=== PATIENT | female | born 1945 | race Caucasian/White ===

== ENCOUNTER 2020-04-06 10:48 | Inpatient (IN) ==
[~2020-04-06 10:48] MED LIST: ASPIRIN 325 MG TABLET PO ONE; DEXTROSE 5% NACL 0.45% 1,000 ML IV SCH; DIAZEPAM 5 MG TABLET PO ONE; MAGNESIUM SULF RIDER 2 GM in PREMIX 1 EACH IV PRN; NICOTINE 21 MG/24 HR PATCH TRANSDERM PRN; POTASSIUM CHLORIDE RIDER 10 MEQ in PREMIX 1 EACH IV PRN; diphenhydrAMINE CAP 25 MG CAPSULE PO ONE
[2020-04-06] MEDS ORDERED: HEPARIN/NACL 0.9% 2 UNITS/ML 0 ML IV ONE (12:25)
[2020-04-06] MEDS ORDERED: LIDOCAINE 1% 20 ML VIAL ONE (12:25)
[2020-04-06] MEDS ORDERED: HEPARIN/NACL 0.9% 2 UNITS/ML 1,000 ML IV ONE (12:32)
[2020-04-06 12:47] LABS: Basophils % 0.1 % (0.0-0.8); Hematocrit 40.1 VOL% (35.7-47.0); Hemoglobin 13.4 GM/DL (12.0-16.0); Immature Granulocytes % 0.4 %; Immature Granulocytes Absolute 0.04 #; Lymphocytes # 1.7 10*3/uL (1.4-4.0); Lymphocytes % 14.8 % (21.3-54.2); Mean Corpuscular HGB Conc 33.4 GM/DL (32-36); Mean Corpuscular Volume 96.6 FL (87-102); Mean Platelet Volume 10.2 FL (9.6-12.0); Monocytes % 5.6 % (1.7-12.7); Neutrophils % 79.1 % (38.7-73.9); Platelet Count 240 T/CUMM (130-400); Red Blood Count 4.15 MC/CUMM (3.8-5.5); White Blood Count 11.3 T/CUMM (4-12)
[2020-04-06] MEDS ORDERED: ASPIRIN 325 MG TABLET ONE (12:47)
[2020-04-06] MEDS ORDERED: DIAZEPAM 5 MG TABLET ONE (12:47)
[2020-04-06] MEDS ORDERED: diphenhydrAMINE CAP 25 MG CAPSULE ONE (12:47)
[2020-04-06 12:54] LABS: PT Patient Result 10.3 SECS (9.8-11.9)
[2020-04-06 13:11] LABS: Albumin 3.7 G/DL (3.4-5.0); Bilirubin,Total 0.4 MG/DL (0.2-1.0); Calcium 9.1 MG/DL (8.5-10.1); Osmolality,Calculated 277.7 MOS/KG (273-304); Total Protein 7.1 G/DL (6.4-8.3)
[2020-04-06] MEDS ORDERED: LIDOCAINE 1%/EPI INJ 20 ML VIAL ONE (13:25)
[2020-04-06] MEDS ORDERED: MIDAZOLAM 2 MG/2 ML VIAL ONE (13:31)
[2020-04-06] MEDS ORDERED: fentaNYL 100 MCG/2 ML VIAL ONE (13:31)
[2020-04-06] MEDS ORDERED: NITROGLYCERIN SL 0.4 MG TABLET SL PRN (14:12)
[2020-04-06] MEDS ORDERED: valACYclovir 500 MG TABLET PO PRN (14:12)
[2020-04-06] MEDS ORDERED: DICLOFENAC 1% GEL 100 GM TUBE TOP PRN (14:12)
[2020-04-06] MEDS ORDERED: METHOCARBAMOL 500 MG TABLET PO PRN (14:12)
[2020-04-06] MEDS ORDERED: DEXTROSE 50% 25 GM/50 ML VIAL IV PRN (14:43)
[2020-04-06] MEDS ORDERED: GLUCAGON 1 MG VIAL IM PRN (14:43)
[2020-04-06] MEDS ORDERED: CHLORHEXIDINE 4% SOLN 118 ML BOTTLE TOP SCH (15:00)
[2020-04-06] MEDS ORDERED: MEPERIDINE 25 MG/1 ML VIAL IV ONE (15:05)
[2020-04-06] MEDS: SODIUM CHLORIDE 0.9% 1,000 ML IV SCH (15:14)
[2020-04-06] MEDS ORDERED: hydrALAZINE 20 MG/1 ML VIAL IV PRN (17:00)
[2020-04-06] MEDS ORDERED: diphenhydrAMINE CAP 25 MG CAPSULE PO PRN (17:00)
[2020-04-06] MEDS ORDERED: SIMETHICONE CHEW 125 MG TABLET PO PRN (17:00)
[2020-04-06] MEDS ORDERED: PROMETHAZINE 25 MG TABLET PO PRN (17:00)
[2020-04-06] MEDS ORDERED: ONDANSETRON 4 MG/2 ML VIAL IV PRN (17:00)
[2020-04-06] MEDS ORDERED: MORPHINE 4 MG/1 ML VIAL IV PRN (17:00)
[2020-04-06] MEDS ORDERED: ACETAMINOPHEN 325 MG TABLET PO PRN (17:00)
[2020-04-06] MEDS ORDERED: ALBUTEROL 2.5 MG/3 ML NEB RESP TX SCH (19:00)
[2020-04-06] MEDS ORDERED: guaiFENesin/DM ER 600-30 MG TABLET PO PRN (21:00)
[2020-04-06] MEDS ORDERED: ERGOCALCIFEROL 50,000 UNIT CAPSULE PO SCH (21:00)
[2020-04-06] MEDS ORDERED: DOCUSATE SODIUM 100 MG CAPSULE PO PRN (21:00)
[2020-04-06] MEDS ORDERED: ZALEPLON 5 MG CAPSULE PO PRN (21:00)
[2020-04-06] MEDS ORDERED: ESTRADIOL 0.01% VAG CREAM 42.5 GM TUBE VAG SCH (21:00)
[2020-04-06] MEDS ORDERED: CHLORHEXIDINE 0.12% ORAL RINSE 60 ML BOTTLE SWISH/SPIT SCH (21:00)
[2020-04-06] MEDS ORDERED: GABAPENTIN 100 MG CAPSULE PO PRN (21:00)
[2020-04-06] MEDS: MAGNESIUM GLUCONATE 500 MG TABLET PO SCH (21:57)
[2020-04-06] MEDS: NORTRIPTYLINE 25 MG CAPSULE PO SCH (21:57)
[2020-04-06] MEDS: VENLAFAXINE 37.5 MG TABLET PO SCH (21:58)
[2020-04-06] MEDS: VENLAFAXINE 75 MG TABLET PO SCH (21:58)
[2020-04-06] MEDS: METHENAMINE HIPPURATE 1 GM TABLET PO SCH (21:59)
[2020-04-06] MEDS: ALUMINUM/MAGNES/SIMETH MAX STR 30 ML UDCUP PO SCH (21:59)
[2020-04-06] MEDS: PROPRANOLOL 10 MG TABLET PO SCH (22:00)
[2020-04-06] MEDS: ALBUTEROL 0.4 MG/ML 30 ML/BOTTLE PO SCH (22:04)
[2020-04-07 05:08] LABS: ABG Base Excess 3.5 MMOL/L (-2.5-2.5); ABG HCO3 27.4 MMOL/L (20-26); ABG Oxygen Saturation 94.4 % (95-100); ABG PCO2 47.1 MM HG (35-48); ABG PH 7.399 (7.35-7.45); ABG TCO2 25.6 MMOL/L (23-27)
[2020-04-07 05:09] LABS: Allen Test Positive; Pt O2 Delivery Device Room Air
[2020-04-07 06:56] LABS: Basophils % 0.4 % (0.0-0.8); Eosinophils # 0.1 10*3/uL (0.0-0.87); Eosinophils % 0.8 % (0.00-10.9); Hematocrit 38.6 VOL% (35.7-47.0); Hemoglobin 12.6 GM/DL (12.0-16.0); Immature Granulocytes % 0.3 %; Immature Granulocytes Absolute 0.02 #; Lymphocytes % 38.4 % (21.3-54.2); Mean Corpuscular HGB Conc 32.6 GM/DL (32-36); Mean Corpuscular Volume 98.7 FL (87-102); Mean Platelet Volume 10.4 FL (9.6-12.0); Monocytes % 10.6 % (1.7-12.7); Neutrophils % 49.5 % (38.7-73.9); Platelet Count 205 T/CUMM (130-400); Red Blood Count 3.91 MC/CUMM (3.8-5.5); Red Cell Distribution Width 12.3 % (9.3-17.3); White Blood Count 7.9 T/CUMM (4-12)
[2020-04-07 07:23] LABS: Albumin 3.5 G/DL (3.4-5.0); Bilirubin,Total 0.4 MG/DL (0.2-1.0); Calcium 8.8 MG/DL (8.5-10.1); Osmolality,Calculated 283.1 MOS/KG (273-304); Total Protein 6.4 G/DL (6.4-8.3)
[2020-04-07] MEDS ORDERED: BISACODYL 5 MG TABLET PO PRN (09:00)
[2020-04-07] MEDS ORDERED: ALBUTEROL SULFATE INH SCH (09:00)
[2020-04-07] MEDS: ALBUTEROL 0.4 MG/ML 30 ML/BOTTLE PO SCH ×2 (09:56→21:40)
[2020-04-07] MEDS: LIDOCAINE 5% PATCH TRANSDERM SCH (09:57)
[2020-04-07] MEDS: OMEGA 3 ACID ETHYL ESTERS 1 GM CAPSULE PO SCH (09:58)
[2020-04-07] MEDS: ATORVASTATIN 40 MG TABLET PO SCH (09:58)
[2020-04-07] MEDS: atenoloL 25 MG TABLET PO SCH (09:58)
[2020-04-07] MEDS: PANTOPRAZOLE 40 MG TABLET PO SCH (09:59)
[2020-04-07] MEDS: FEXOFENADINE 180 MG TABLET PO SCH (09:59)
[2020-04-07] MEDS: EZETIMIBE 10 MG TABLET PO SCH (09:59)
[2020-04-07] MEDS: lisinopriL 20 MG TABLET PO SCH (09:59)
[2020-04-07] MEDS: MONTELUKAST 10 MG TABLET PO SCH (09:59)
[2020-04-07] MEDS: METHENAMINE HIPPURATE 1 GM TABLET PO SCH ×2 (09:59→21:39)
[2020-04-07] MEDS: ASPIRIN EC 81 MG TABLET PO SCH (09:59)
[2020-04-07] MEDS: COENZYME Q10 100 MG CAPSULE PO SCH (09:59)
[2020-04-07] MEDS: CHLORHEXIDINE 4% SOLN 118 ML BOTTLE TOP SCH ×2 (18:10→21:43)
[2020-04-07] MEDS: VENLAFAXINE 37.5 MG TABLET PO SCH (21:38)
[2020-04-07] MEDS: VENLAFAXINE 75 MG TABLET PO SCH (21:38)
[2020-04-07] MEDS: MAGNESIUM GLUCONATE 500 MG TABLET PO SCH (21:39)
[2020-04-07] MEDS: NORTRIPTYLINE 25 MG CAPSULE PO SCH (21:39)
[2020-04-07] MEDS: PROPRANOLOL 10 MG TABLET PO SCH (21:40)
[2020-04-07] MEDS: CHLORHEXIDINE 0.12% ORAL RINSE 60 ML BOTTLE SWISH/SPIT SCH (21:42)
[2020-04-07] MEDS: ALUMINUM/MAGNES/SIMETH MAX STR 30 ML UDCUP PO SCH (21:45)
[2020-04-08] MEDS: CHLORHEXIDINE 4% SOLN 118 ML BOTTLE TOP SCH ×2 (04:13→11:58)
[2020-04-08] MEDS ORDERED: VANCOMYCIN 500 MG VIAL ONE (04:23)
[2020-04-08] MEDS ORDERED: PAPAVERINE 60 MG/2 ML VIAL ONE (04:23)
[2020-04-08] MEDS ORDERED: VANCOMYCIN 1,000 MG VIAL ONE (04:23)
[2020-04-08] MEDS ORDERED: CEFUROXIME INJ 1,500 MG in SYRINGE 1 EACH IV ONE (05:00)
[2020-04-08] MEDS ORDERED: AMINOCAPROIC ACID 5,000 MG/20 ML VIAL ONE (05:52)
[2020-04-08] MEDS ORDERED: MIDAZOLAM 10 MG/2 ML VIAL ONE (05:52)
[2020-04-08] MEDS ORDERED: SUFentanil 250 MCG/5 ML AMP ONE (05:52)
[2020-04-08] MEDS ORDERED: CALCIUM CHLORIDE 1,000 MG/10 ML VIAL IV ONE (05:52)
[2020-04-08] MEDS ORDERED: VECURONIUM 10 MG VIAL IV ONE (05:52)
[2020-04-08] MEDS ORDERED: MINERAL OIL/PETROLATUM OPH OINT 3.5 GM TUBE ONE (05:52)
[2020-04-08] MEDS ORDERED: diphenhydrAMINE 50 MG/1 ML VIAL ONE (05:53)
[2020-04-08] MEDS ORDERED: FAMOTIDINE 20 MG/2 ML VIAL IV ONE (05:53)
[2020-04-08] MEDS ORDERED: SODIUM BICARBONATE 50 MEQ/50 ML VIAL IV ONE ×2 (07:13→10:41)
[2020-04-08] MEDS ORDERED: POTASSIUM CHLORIDE RIDER 100 ML IV ONE (07:13)
[2020-04-08] MEDS ORDERED: NITROPRUSSIDE 50 MG/2 ML VIAL ONE (07:13)
[2020-04-08] MEDS ORDERED: CALCIUM CHLORIDE 1,000 MG/10 ML SYRINGE IV ONE (07:13)
[2020-04-08] MEDS ORDERED: PHENYLEPHRINE DRIP 40 MG/250 ML PREMIX IV ONE (07:13)
[2020-04-08 07:45] LABS: ABG Base Excess 0.6 MMOL/L (-2.5-2.5); ABG Oxygen Saturation 99.9 % (95-100); ABG PH 7.386 (7.35-7.45); Glucose Heart Surgery 105 MG/DL (74-106); Hematocrit Heart Surgery 35.6 PERCENT (37-47); Hemoglobin Heart Surgery 11.5 G/DL (12.0-16.0); Ionized Calcium Arterial 1.18 MMOL/L (1.21-1.46); PH Patient Temp Arterial 7.386; Patient Temperature 37 CELCIUS; Sodium Heart/CVR 140 MMOL/L (135-145)
[2020-04-08 08:11] LABS: Apearance,Urine CLEAR (Clear); Bacteria,Urine Occasional /HPF (Few); Bilirubin,Urine Negative (Negative); Blood, Urine Negative (Negative); Glucose,Urine (UA) Negative (Negative); Hyaline Casts,Urine 1 /LPF (0-3); Ketones,Urine Negative (Negative); Mucus,Urine Occasional /LPF (Occasional); Nitrite,Urine Negative (Negative); Protein,Urine Negative; RBC,Urine 4 /HPF (0-4); Squamous Epithelial Cell,Urine Occasional /HPF (0-10); Urine Color Yellow (Yellow); Urine Specific Gravity 1.021 (1.001-1.035); Urine Urobilinogen < 2.0 EU/DL (0.2-1.0); WBC,Urine 5 /HPF (0-6)
[2020-04-08] MEDS ORDERED: ALBUMIN 5% 12.5 GM/250 ML VIAL IV ONE (08:13)
[2020-04-08 09:12] LABS: Hematocrit Heart Surgery 24.4 PERCENT (37-47); Hemoglobin Heart Surgery 7.8 G/DL (12.0-16.0); PCO2 Patient Temp Venous 36.2 MM HG; PH Patient Temp Venous 7.473; PO2 Patient Temp Venous 38.6 MM HG; Potassium Heart/CVR 5.3 MMOL/L (3.5-5.1); VBG Base Excess 3.1 MEQ/L (0-4); VBG Oxygen Saturation 83.4 %; VBG PCO2 39.9 MMHG (41-51); VBG PH 7.444; VBG PO2 44.4 MMHG (17-40)
[2020-04-08 09:36] LABS: Hematocrit Heart Surgery 27.1 PERCENT (37-47); Hemoglobin Heart Surgery 8.7 G/DL (12.0-16.0); PCO2 Patient Temp Venous 32.1 MM HG; PH Patient Temp Venous 7.504; Potassium Heart/CVR 4.9 MMOL/L (3.5-5.1); VBG Base Excess 2.5 MEQ/L (0-4); VBG HCO3 26.5 MEQ/L (24-28); VBG Oxygen Saturation 87.7 %; VBG PCO2 37.1 MMHG (41-51); VBG PH 7.459
[2020-04-08 10:05] LABS: Hematocrit Heart Surgery 28.6 PERCENT (37-47); Hemoglobin Heart Surgery 9.2 G/DL (12.0-16.0); PCO2 Patient Temp Venous 34.7 MM HG; PH Patient Temp Venous 7.487; PO2 Patient Temp Venous 38.3 MM HG; Potassium Heart/CVR 4.9 MMOL/L (3.5-5.1); VBG HCO3 26.8 MEQ/L (24-28); VBG Oxygen Saturation 78.5 %; VBG PCO2 34.7 MMHG (41-51); VBG PH 7.487; VBG PO2 38.3 MMHG (17-40)
[2020-04-08 10:32] LABS: ABG Base Excess -0.6 MMOL/L (-2.5-2.5); ABG HCO3 23.8 MMOL/L (20-26); ABG Oxygen Saturation 98.7 % (95-100); ABG PCO2 37.8 MM HG (35-48); ABG PH 7.417 (7.35-7.45); ABG PO2 326.4 MM HG (80-95); Glucose Heart Surgery 175 MG/DL (74-106); Hemoglobin Heart Surgery 8.8 G/DL (12.0-16.0); Ionized Calcium Arterial 1.22 MMOL/L (1.21-1.46); PCO2 Patient Temp Arterial 37.8 MMHG; PH Patient Temp Arterial 7.417; PO2 Patient Temp Arterial 326.4 MM HG; Patient Temperature 37 CELCIUS; Potassium Heart/CVR 3.4 MMOL/L (3.5-5.1); Sodium Heart/CVR 134 MMOL/L (135-145)
[2020-04-08] MEDS ORDERED: MANNITOL 100 GM/500 ML BAG IV ONE (10:40)
[2020-04-08] MEDS ORDERED: LIDOCAINE 2% 5 ML VIAL ONE (10:40)
[2020-04-08] MEDS ORDERED: DEXTROSE 5% KCL 20 MEQ 20 MEQ/1,000 ML BAG IV ONE (10:40)
[2020-04-08] MEDS ORDERED: PROTAMINE SULFATE 50 MG/5 ML VIAL IV ONE ×3 (10:41→11:36)
[2020-04-08] MEDS ORDERED: MAGNESIUM SULFATE 5 GM/10 ML VIAL IV ONE (10:41)
[2020-04-08] MEDS ORDERED: PROTAMINE SULFATE 250 MG/25 ML VIAL IV ONE (10:41)
[2020-04-08] MEDS ORDERED: HEPARIN 10,000 UNIT/10 ML VIAL ONE (10:41)
[2020-04-08] MEDS ORDERED: FUROSEMIDE 20 MG/2 ML VIAL ONE (10:41)
[2020-04-08] MEDS ORDERED: methylPREDNISolone SOD SUC 1,000 MG/8 ML VIAL ONE (10:41)
[2020-04-08] MEDS ORDERED: ALBUMIN 25% 25 GM/100 ML VIAL IV ONE (10:41)
[2020-04-08] MEDS ORDERED: AMIODARONE 450 MG/9 ML VIAL IV ONE (11:18)
[2020-04-08] MEDS ORDERED: MAGNESIUM SULF RIDER 2 GM in PREMIX 1 EACH IV PRN (11:36)
[2020-04-08] MEDS ORDERED: LACTATED RINGERS 250 ML IV PRN (11:36)
[2020-04-08] MEDS ORDERED: DEXTROSE 10% 250 ML BAG IV PRN ×2 (11:36)
[2020-04-08] MEDS ORDERED: INSULIN REGULAR 100 UNIT/ML IV ONE (11:36)
[2020-04-08] MEDS ORDERED: AMIODARONE INJ 450 MG in DEXTROSE 5% 241 ML IV SCH (11:36)
[2020-04-08] MEDS ORDERED: NITROPRUSSIDE 100 MG in DEXTROSE 5% 250 ML IV PRN (11:36)
[2020-04-08] MEDS ORDERED: ALBUMIN 5% 12.5 GM in PREMIX 1 EACH IV PRN (11:36)
[2020-04-08] MEDS ORDERED: INSULIN REGULAR 100 UNIT/ML IV PRN (11:36)
[2020-04-08] MEDS ORDERED: ACETAMINOPHEN 650 MG SUPP RECTAL PRN (11:36)
[2020-04-08] MEDS ORDERED: MORPHINE 4 MG/1 ML VIAL IV PRN (11:36)
[2020-04-08] MEDS ORDERED: MAGNESIUM SULF RIDER 4 GM in PREMIX 1 EACH IV PRN (11:36)
[2020-04-08] MEDS ORDERED: ONDANSETRON 4 MG/2 ML VIAL IV PRN (11:36)
[2020-04-08] MEDS ORDERED: CALCIUM CHLORIDE 1,000 MG/10 ML SYRINGE IV PRN (11:36)
[2020-04-08] MEDS ORDERED: MIDAZOLAM 10 MG/2 ML VIAL IV PRN (11:36)
[2020-04-08] MEDS ORDERED: INSULIN REGULAR DRIP 100 ML IV SCH (11:36)
[2020-04-08] MEDS ORDERED: MORPHINE 10 MG/1 ML VIAL IV PRN (11:36)
[2020-04-08] MEDS ORDERED: VECURONIUM 10 MG VIAL IV PRN ×2 (11:36)
[2020-04-08] MEDS ORDERED: PHENYLEPHRINE DRIP 40 MG/250 ML PREMIX IV PRN (11:36)
[2020-04-08] MEDS ORDERED: CHLORHEXIDINE 4% SOLN 118 ML BOTTLE TOP PRN (11:36)
[2020-04-08] MEDS ORDERED: MIDAZOLAM 2 MG/2 ML VIAL IV PRN (11:36)
[2020-04-08] MEDS ORDERED: SODIUM CHLORIDE 0.45% 1,000 ML IV SCH ×2 (11:36)
[2020-04-08] MEDS ORDERED: HEPARIN/NACL 0.9% 2 UNITS/ML 500 ML IV ONE (11:46)
[2020-04-08] MEDS ORDERED: ePHEDrine 50 MG/ML VIAL ONE (11:46)
[2020-04-08] MEDS ORDERED: SEVOFLURANE 1 UNIT/15 MINUTE INH ONE (11:46)
[2020-04-08] MEDS ORDERED: AMIODARONE 150 MG/3 ML VIAL ONE (11:46)
[2020-04-08] MEDS ORDERED: SODIUM CHLORIDE 0.9% 1,000 ML IV ONE (11:47)
[2020-04-08] MEDS ORDERED: SODIUM CHLORIDE 0.9% 300 ML IV ONE (11:47)
[2020-04-08] MEDS ORDERED: ETOMIDATE 40 MG/20 ML VIAL IV ONE (11:47)
[2020-04-08] MEDS ORDERED: SODIUM CHLORIDE 0.9% 250 ML IV ONE (11:47)
[2020-04-08] MEDS ORDERED: PHENYLEPHRINE 10 MG/1 ML VIAL IV ONE (11:53)
[2020-04-08 11:54] LABS: ABG Base Excess 1.5 MMOL/L (-2.5-2.5); ABG HCO3 25.8 MMOL/L (20-26); ABG Oxygen Saturation 96.2 % (95-100); ABG PCO2 43.9 MM HG (35-48); ABG PH 7.392 (7.35-7.45); ABG PO2 77.2 MM HG (80-95); ABG TCO2 24.7 MMOL/L (23-27); Glucose Heart Surgery 150 MG/DL (74-106); Hemoglobin Heart Surgery 8.7 G/DL (12.0-16.0); Potassium Heart/CVR 3.6 MMOL/L (3.5-5.1)
[2020-04-08 11:58] LABS: Basophils % 0.2 % (0.0-0.8); Eosinophils # 0.1 10*3/uL (0.0-0.87); Eosinophils % 0.5 % (0.00-10.9); Hematocrit 26.3 VOL% (35.7-47.0); Hemoglobin 8.6 GM/DL (12.0-16.0); Immature Granulocytes % 0.9 %; Immature Granulocytes Absolute 0.12 #; Lymphocytes # 1.4 10*3/uL (1.4-4.0); Lymphocytes % 11.2 % (21.3-54.2); Mean Corpuscular HGB Conc 32.7 GM/DL (32-36); Mean Corpuscular Volume 99.6 FL (87-102); Mean Platelet Volume 10.5 FL (9.6-12.0); Monocytes % 4.2 % (1.7-12.7); Platelet Count 171 T/CUMM (130-400); Red Blood Count 2.64 MC/CUMM (3.8-5.5); White Blood Count 12.8 T/CUMM (4-12)
[2020-04-08] MEDS: POTASSIUM CHLORIDE RIDER 20 MEQ in PREMIX 1 EACH IV PRN ×5 (11:59→22:28)
[2020-04-08 12:09] LABS: INR 1.3; PT Patient Result 13.4 SECS (9.8-11.9); Partial Thromboplastin Time 27.6 SECS (23.9-33.8)
[2020-04-08 12:20] LABS: Bilirubin,Total 0.8 MG/DL (0.2-1.0); Calcium 9.9 MG/DL (8.5-10.1); Osmolality,Calculated 283.3 MOS/KG (273-304); Total Protein 5.5 G/DL (6.4-8.3)
[2020-04-08 12:28] LABS: CKMB % 3.7 %
[2020-04-08 12:30] LABS: Troponin I 2.16 NG/ML (0.00-0.045)
[2020-04-08] MEDS: POTASSIUM CHLORIDE RIDER 10 MEQ in PREMIX 1 EACH IV PRN ×2 (12:37→14:14)
[2020-04-08] MEDS: atenoloL 25 MG TABLET PO SCH (13:23)
[2020-04-08] MEDS: EZETIMIBE 10 MG TABLET PO SCH (13:23)
[2020-04-08] MEDS: ATORVASTATIN 40 MG TABLET PO SCH (13:24)
[2020-04-08] MEDS: PANTOPRAZOLE 40 MG TABLET PO SCH (13:24)
[2020-04-08] MEDS: MONTELUKAST 10 MG TABLET PO SCH (13:24)
[2020-04-08] MEDS: OMEGA 3 ACID ETHYL ESTERS 1 GM CAPSULE PO SCH (13:24)
[2020-04-08] MEDS: lisinopriL 20 MG TABLET PO SCH (13:24)
[2020-04-08] MEDS: CHLORHEXIDINE 0.12% ORAL RINSE 60 ML BOTTLE SWISH/SPIT SCH (13:24)
[2020-04-08] MEDS: ALBUTEROL 0.4 MG/ML 30 ML/BOTTLE PO SCH (13:24)
[2020-04-08] MEDS: COENZYME Q10 100 MG CAPSULE PO SCH (13:25)
[2020-04-08] MEDS: FEXOFENADINE 180 MG TABLET PO SCH (13:25)
[2020-04-08] MEDS: METHENAMINE HIPPURATE 1 GM TABLET PO SCH (13:25)
[2020-04-08] MEDS: LIDOCAINE 5% PATCH TRANSDERM SCH (13:25)
[2020-04-08] MEDS: ASPIRIN EC 81 MG TABLET PO SCH (13:25)
[2020-04-08] MEDS: SODIUM CHLORIDE 0.9% 1,000 ML IV SCH (13:26)
[2020-04-08 14:05] LABS: ABG Base Excess 0.8 MMOL/L (-2.5-2.5); ABG HCO3 25.1 MMOL/L (20-26); ABG Oxygen Saturation 97.1 % (95-100); ABG PCO2 40.7 MM HG (35-48); ABG PH 7.405 (7.35-7.45); ABG PO2 84.3 MM HG (80-95); ABG TCO2 22.9 MMOL/L (23-27); Glucose Heart Surgery 171 MG/DL (74-106); Hematocrit Heart Surgery 33.7 PERCENT (37-47); Hemoglobin Heart Surgery 10.9 G/DL (12.0-16.0); Potassium Heart/CVR 3.9 MMOL/L (3.5-5.1)
[2020-04-08 16:00] LABS: ABG Base Excess 0.8 MMOL/L (-2.5-2.5); ABG HCO3 25.1 MMOL/L (20-26); ABG Oxygen Saturation 96.8 % (95-100); ABG PCO2 38.1 MM HG (35-48); ABG PH 7.425 (7.35-7.45); ABG PO2 81.7 MM HG (80-95); ABG TCO2 22.4 MMOL/L (23-27); Glucose Heart Surgery 204 MG/DL (74-106); Hematocrit Heart Surgery 33.6 PERCENT (37-47); Hemoglobin Heart Surgery 10.9 G/DL (12.0-16.0); Potassium Heart/CVR 4.4 MMOL/L (3.5-5.1)
[2020-04-08] MEDS: AMIODARONE INJ 450 MG in DEXTROSE 5% 241 ML IV SCH ×2 (17:32→20:30)
[2020-04-08 18:14] LABS: ABG Base Excess 0.1 MMOL/L (-2.5-2.5); ABG HCO3 24.5 MMOL/L (20-26); ABG Oxygen Saturation 95.5 % (95-100); ABG PCO2 50.4 MM HG (35-48); ABG PH 7.331 (7.35-7.45); ABG PO2 80.3 MM HG (80-95); ABG TCO2 24.2 MMOL/L (23-27); Glucose Heart Surgery 212 MG/DL (74-106); Hematocrit Heart Surgery 33.6 PERCENT (37-47); Hemoglobin Heart Surgery 10.9 G/DL (12.0-16.0); Potassium Heart/CVR 5.1 MMOL/L (3.5-5.1)
[2020-04-08] MEDS ORDERED: FUROSEMIDE 40 MG/4 ML VIAL IV PRN (18:40)
[2020-04-08 19:19] LABS: ABG Base Excess -0.1 MMOL/L (-2.5-2.5); ABG HCO3 24.3 MMOL/L (20-26); ABG Oxygen Saturation 94.6 % (95-100); ABG PCO2 40.5 MM HG (35-48); ABG PH 7.394 (7.35-7.45); ABG PO2 71.4 MM HG (80-95); ABG TCO2 22.3 MMOL/L (23-27); Glucose Heart Surgery 204 MG/DL (74-106); Hematocrit Heart Surgery 33.7 PERCENT (37-47); Hemoglobin Heart Surgery 10.9 G/DL (12.0-16.0); Potassium Heart/CVR 4.8 MMOL/L (3.5-5.1)
[2020-04-08] MEDS ORDERED: FUROSEMIDE 40 MG/4 ML VIAL IV ONE (19:43)
[2020-04-08 19:47] LABS: CKMB % 3.5 %
[2020-04-08 19:48] LABS: Troponin I 2.26 NG/ML (0.00-0.045)
[2020-04-08 20:48] LABS: ABG Base Excess 0.6 MMOL/L (-2.5-2.5); ABG HCO3 24.9 MMOL/L (20-26); ABG Oxygen Saturation 96.2 % (95-100); ABG PCO2 35.2 MM HG (35-48); ABG PH 7.447 (7.35-7.45); ABG PO2 76.8 MM HG (80-95); ABG TCO2 21.6 MMOL/L (23-27); Glucose Heart Surgery 189 MG/DL (74-106); Hemoglobin Heart Surgery 11.3 G/DL (12.0-16.0); Potassium Heart/CVR 4.4 MMOL/L (3.5-5.1)
[2020-04-08 22:06] LABS: ABG Base Excess 1.5 MMOL/L (-2.5-2.5); ABG HCO3 25.7 MMOL/L (20-26); ABG Oxygen Saturation 96.3 % (95-100); ABG PCO2 33.7 MM HG (35-48); ABG PH 7.472 (7.35-7.45); ABG PO2 73.2 MM HG (80-95); ABG TCO2 21.9 MMOL/L (23-27); Glucose Heart Surgery 174 MG/DL (74-106); Hematocrit Heart Surgery 35.1 PERCENT (37-47); Hemoglobin Heart Surgery 11.4 G/DL (12.0-16.0); Potassium Heart/CVR 4.4 MMOL/L (3.5-5.1)
[2020-04-09 00:01] LABS: ABG Base Excess 1.8 MMOL/L (-2.5-2.5); ABG Oxygen Saturation 97.2 % (95-100); ABG PCO2 32.6 MM HG (35-48); ABG PH 7.487 (7.35-7.45); ABG PO2 79.9 MM HG (80-95); ABG TCO2 21.9 MMOL/L (23-27); Glucose Heart Surgery 143 MG/DL (74-106); Hematocrit Heart Surgery 34.9 PERCENT (37-47); Hemoglobin Heart Surgery 11.3 G/DL (12.0-16.0); Potassium Heart/CVR 4.4 MMOL/L (3.5-5.1)
[2020-04-09] MEDS: POTASSIUM CHLORIDE RIDER 20 MEQ in PREMIX 1 EACH IV PRN ×2 (00:10→04:15)
[2020-04-09 00:49] LABS: ABG HCO3 26.2 MMOL/L (20-26); ABG Oxygen Saturation 98.2 % (95-100); ABG PCO2 37.5 MM HG (35-48); ABG PH 7.447 (7.35-7.45); ABG PO2 95.6 MM HG (80-95); ABG TCO2 23.2 MMOL/L (23-27); Glucose Heart Surgery 135 MG/DL (74-106); Hematocrit Heart Surgery 34.4 PERCENT (37-47); Hemoglobin Heart Surgery 11.2 G/DL (12.0-16.0); Potassium Heart/CVR 4.9 MMOL/L (3.5-5.1)
[2020-04-09] MEDS: CHLORHEXIDINE 0.12% ORAL RINSE 60 ML BOTTLE SWISH/SPIT SCH ×3 (01:21→21:04)
[2020-04-09 03:50] LABS: ABG Base Excess 3.1 MMOL/L (-2.5-2.5); ABG HCO3 27.2 MMOL/L (20-26); ABG Oxygen Saturation 97.6 % (95-100); ABG PCO2 39.2 MM HG (35-48); ABG PO2 88.5 MM HG (80-95); ABG TCO2 24.2 MMOL/L (23-27); Glucose Heart Surgery 120 MG/DL (74-106); Hematocrit Heart Surgery 34.7 PERCENT (37-47); Hemoglobin Heart Surgery 11.3 G/DL (12.0-16.0); Potassium Heart/CVR 4.3 MMOL/L (3.5-5.1)
[2020-04-09 04:07] LABS: Basophils % 0.1 % (0.0-0.8); Hematocrit 32.4 VOL% (35.7-47.0); Hemoglobin 11.2 GM/DL (12.0-16.0); Immature Granulocytes % 0.4 %; Immature Granulocytes Absolute 0.06 #; Lymphocytes # 0.9 10*3/uL (1.4-4.0); Lymphocytes % 6.2 % (21.3-54.2); Mean Corpuscular HGB Conc 34.6 GM/DL (32-36); Mean Corpuscular Volume 92.3 FL (87-102); Monocytes % 4.1 % (1.7-12.7); Neutrophils % 89.2 % (38.7-73.9); Platelet Count 206 T/CUMM (130-400); Red Blood Count 3.51 MC/CUMM (3.8-5.5); Red Cell Distribution Width 13.2 % (9.3-17.3); White Blood Count 14.3 T/CUMM (4-12)
[2020-04-09 04:29] LABS: Albumin 3.5 G/DL (3.4-5.0); Bilirubin,Direct 0.17 MG/DL (0.0-0.20); Bilirubin,Total 0.6 MG/DL (0.2-1.0); Calcium 9.2 MG/DL (8.5-10.1); Osmolality,Calculated 279.5 MOS/KG (273-304); Total Protein 6.3 G/DL (6.4-8.3)
[2020-04-09 04:30] LABS: CKMB % 3.2 %
[2020-04-09 04:31] LABS: Troponin I 1.41 NG/ML (0.00-0.045)
[2020-04-09 05:22] LABS: ABG Base Excess 3.2 MMOL/L (-2.5-2.5); ABG HCO3 27.2 MMOL/L (20-26); ABG Oxygen Saturation 96.4 % (95-100); ABG PCO2 39.1 MM HG (35-48); ABG PH 7.451 (7.35-7.45); ABG PO2 78.2 MM HG (80-95); ABG TCO2 24.3 MMOL/L (23-27); Glucose Heart Surgery 130 MG/DL (74-106); Hematocrit Heart Surgery 34.8 PERCENT (37-47); Hemoglobin Heart Surgery 11.3 G/DL (12.0-16.0); Potassium Heart/CVR 4.6 MMOL/L (3.5-5.1)
[2020-04-09] MEDS: POTASSIUM CHLORIDE RIDER 10 MEQ in PREMIX 1 EACH IV PRN (06:14)
[2020-04-09 06:28] LABS: ABG Base Excess 3.8 MMOL/L (-2.5-2.5); ABG HCO3 27.8 MMOL/L (20-26); ABG Oxygen Saturation 98.5 % (95-100); ABG PCO2 41.4 MM HG (35-48); ABG PH 7.442 (7.35-7.45); ABG TCO2 25.3 MMOL/L (23-27); Glucose Heart Surgery 141 MG/DL (74-106); Hematocrit Heart Surgery 33.9 PERCENT (37-47); Potassium Heart/CVR 4.8 MMOL/L (3.5-5.1)
[2020-04-09 07:03] LABS: ABG Base Excess 3.9 MMOL/L (-2.5-2.5); ABG HCO3 27.9 MMOL/L (20-26); ABG Oxygen Saturation 98.3 % (95-100); ABG PCO2 39.6 MM HG (35-48); ABG PH 7.457 (7.35-7.45); Glucose Heart Surgery 143 MG/DL (74-106); Hematocrit Heart Surgery 33.8 PERCENT (37-47); Potassium Heart/CVR 4.6 MMOL/L (3.5-5.1)
[2020-04-09] MEDS ORDERED: INSULIN REGULAR 100 UNIT/ML SUBCUT SCH (08:00)
[2020-04-09] MEDS ORDERED: hydrALAZINE 20 MG/1 ML VIAL IV PRN (09:24)
[2020-04-09] MEDS ORDERED: valACYclovir 500 MG TABLET PO PRN (09:24)
[2020-04-09] MEDS ORDERED: DICLOFENAC 1% GEL 100 GM TUBE TOP PRN (09:24)
[2020-04-09] MEDS ORDERED: guaiFENesin/DM ER 600-30 MG TABLET PO PRN (09:24)
[2020-04-09] MEDS ORDERED: GABAPENTIN 100 MG CAPSULE PO PRN (09:24)
[2020-04-09] MEDS ORDERED: ZALEPLON 5 MG CAPSULE PO PRN (09:47)
[2020-04-09] MEDS ORDERED: MAGNESIUM SULF RIDER 4 GM in PREMIX 1 EACH IV PRN (09:47)
[2020-04-09] MEDS ORDERED: GLUCAGON 1 MG VIAL IM PRN ×2 (09:47)
[2020-04-09] MEDS ORDERED: MAGNESIUM SULF RIDER 2 GM in PREMIX 1 EACH IV PRN (09:47)
[2020-04-09] MEDS ORDERED: DEXTROSE 50% 25 GM/50 ML VIAL IV PRN ×2 (09:47)
[2020-04-09] MEDS ORDERED: ACETAMINOPHEN 325 MG TABLET PO PRN (09:47)
[2020-04-09] MEDS ORDERED: ONDANSETRON 4 MG/2 ML VIAL IV PRN (09:47)
[2020-04-09] MEDS ORDERED: MORPHINE 4 MG/1 ML VIAL IV PRN (09:47)
[2020-04-09] MEDS ORDERED: SODIUM CHLOR 0.45% KCL 20 MEQ 20 MEQ/1,000 ML BAG IV SCH (10:00)
[2020-04-09] MEDS: AMIODARONE INJ 450 MG in DEXTROSE 5% 241 ML IV SCH (10:05)
[2020-04-09] MEDS: LIDOCAINE 5% PATCH TRANSDERM SCH (10:29)
[2020-04-09] MEDS: LEVOFLOXACIN 500 MG TABLET PO SCH (10:29)
[2020-04-09] MEDS: METHOCARBAMOL 500 MG TABLET PO PRN (11:51)
[2020-04-09] MEDS: oxyCODONE/ACETAMINOPHEN 5-325 MG TABLET PO PRN ×2 (11:51→21:06)
[2020-04-09] MEDS: KETOROLAC 30 MG/1 ML VIAL IV PRN (14:12)
[2020-04-09] MEDS: ALBUTEROL 2.5 MG/3 ML NEB RESP TX SCH (20:23)
[2020-04-09] MEDS: NORTRIPTYLINE 25 MG CAPSULE PO SCH (21:03)
[2020-04-09] MEDS: METHENAMINE HIPPURATE 1 GM TABLET PO SCH (21:03)
[2020-04-09] MEDS: MAGNESIUM GLUCONATE 500 MG TABLET PO SCH (21:03)
[2020-04-09] MEDS: ALUMINUM/MAGNES/SIMETH MAX STR 30 ML UDCUP PO PRN (21:08)
[2020-04-09] MEDS: VENLAFAXINE 75 MG TABLET PO SCH (21:10)
[2020-04-09] MEDS: MAGNESIUM HYDROXIDE SUSP 30 ML UDCUP PO PRN (21:48)
[2020-04-10] MEDS ORDERED: FUROSEMIDE 40 MG/4 ML VIAL IV ONE (06:00)
[2020-04-10 06:51] LABS: Alanine Aminotransferase 37 U/L (13-56); Albumin 2.9 G/DL (3.4-5.0); Alkaline Phosphatase 93 U/L (45-117); Aspartate Amino Transferase 30 U/L (0-37); Bilirubin,Indirect 0.7 MG/DL (0.0-1.0); Blood Urea Nitrogen 29 MG/DL (7-18); Calcium 8.7 MG/DL (8.5-10.1); Estimated Glom Filtration Rate 66 ML/MIN; Glucose 111 MG/DL (74-106)
[2020-04-10 06:53] LABS: Troponin I 0.632 NG/ML (0.00-0.045)
[2020-04-10 06:58] LABS: Basophils % 0.1 % (0.0-0.8); Hematocrit 29.6 VOL% (35.7-47.0); Hemoglobin 9.7 GM/DL (12.0-16.0); Immature Granulocytes % 0.6 %; Immature Granulocytes Absolute 0.09 #; Lymphocytes # 1.7 10*3/uL (1.4-4.0); Lymphocytes % 11.6 % (21.3-54.2); Mean Corpuscular HGB Conc 32.8 GM/DL (32-36); Mean Corpuscular Volume 98.3 FL (87-102); Mean Platelet Volume 11.1 FL (9.6-12.0); Monocytes % 9.4 % (1.7-12.7); Neutrophils % 78.3 % (38.7-73.9); Platelet Count 177 T/CUMM (130-400); Red Blood Count 3.01 MC/CUMM (3.8-5.5); White Blood Count 14.7 T/CUMM (4-12)
[2020-04-10] MEDS: ALBUTEROL 2.5 MG/3 ML NEB RESP TX SCH ×2 (07:20→19:05)
[2020-04-10] MEDS: FERROUS SULFATE 325 MG TABLET PO SCH (09:40)
[2020-04-10] MEDS: ASPIRIN EC 81 MG TABLET PO SCH (09:40)
[2020-04-10] MEDS: LEVOFLOXACIN 500 MG TABLET PO SCH (09:40)
[2020-04-10] MEDS: PANTOPRAZOLE 40 MG TABLET PO SCH (09:40)
[2020-04-10] MEDS: ATORVASTATIN 40 MG TABLET PO SCH (09:41)
[2020-04-10] MEDS: COENZYME Q10 100 MG CAPSULE PO SCH (09:41)
[2020-04-10] MEDS: EZETIMIBE 10 MG TABLET PO SCH (09:41)
[2020-04-10] MEDS: FEXOFENADINE 180 MG TABLET PO SCH (09:41)
[2020-04-10] MEDS: OMEGA 3 ACID ETHYL ESTERS 1 GM CAPSULE PO SCH (09:42)
[2020-04-10] MEDS: atenoloL 25 MG TABLET PO SCH (09:42)
[2020-04-10] MEDS: METHENAMINE HIPPURATE 1 GM TABLET PO SCH ×2 (09:42→21:05)
[2020-04-10] MEDS: lisinopriL 20 MG TABLET PO SCH (09:43)
[2020-04-10] MEDS: POTASSIUM CHLORIDE 20 MEQ TABLET PO PRN (09:43)
[2020-04-10] MEDS: DOCUSATE SODIUM 100 MG CAPSULE PO SCH (09:43)
[2020-04-10] MEDS: MONTELUKAST 10 MG TABLET PO SCH (09:43)
[2020-04-10] MEDS: LIDOCAINE 5% PATCH TRANSDERM SCH (09:47)
[2020-04-10] MEDS ORDERED: AMIODARONE INJ 150 MG in DEXTROSE 5% 100 ML IV ONE (12:26)
[2020-04-10] MEDS ORDERED: DILTIAZEM 50 MG/10 ML VIAL IV ONE (12:28)
[2020-04-10] MEDS ORDERED: DILTIAZEM 25 MG/5 ML VIAL IV ONE (12:32)
[2020-04-10] MEDS ORDERED: AMIODARONE 150 MG/3 ML VIAL ONE (12:32)
[2020-04-10] MEDS ORDERED: AMIODARONE 450 MG/9 ML VIAL IV ONE (12:32)
[2020-04-10] MEDS ORDERED: AMIODARONE INJ 450 MG in DEXTROSE 5% 241 ML IV SCH (12:45)
[2020-04-10] MEDS: CHLORHEXIDINE 0.12% ORAL RINSE 60 ML BOTTLE SWISH/SPIT SCH ×2 (14:35→21:05)
[2020-04-10] MEDS: dilTIAZem Drip 125 MG/125 ML PREMIX IV SCH ×2 (14:42→22:33)
[2020-04-10] MEDS: AMIODARONE INJ 450 MG in DEXTROSE 5% 241 ML IV SCH ×2 (18:45→22:37)
[2020-04-10] MEDS: VENLAFAXINE 75 MG TABLET PO SCH (21:04)
[2020-04-10] MEDS: NORTRIPTYLINE 25 MG CAPSULE PO SCH (21:05)
[2020-04-10] MEDS: MAGNESIUM GLUCONATE 500 MG TABLET PO SCH (21:05)
[2020-04-10] MEDS: KETOROLAC 30 MG/1 ML VIAL IV PRN (21:06)
[2020-04-10] MEDS: ALUMINUM/MAGNES/SIMETH MAX STR 30 ML UDCUP PO PRN (21:10)
[2020-04-10] MEDS: MAGNESIUM HYDROXIDE SUSP 30 ML UDCUP PO PRN (21:10)
[2020-04-11 06:42] LABS: Basophils % 0.1 % (0.0-0.8); Eosinophils # 0.1 10*3/uL (0.0-0.87); Eosinophils % 1.1 % (0.00-10.9); Hematocrit 28.7 VOL% (35.7-47.0); Hemoglobin 9.3 GM/DL (12.0-16.0); Immature Granulocytes % 0.7 %; Immature Granulocytes Absolute 0.07 #; Lymphocytes # 1.8 10*3/uL (1.4-4.0); Lymphocytes % 17.8 % (21.3-54.2); Mean Corpuscular HGB Conc 32.4 GM/DL (32-36); Mean Corpuscular Volume 99.7 FL (87-102); Mean Platelet Volume 10.9 FL (9.6-12.0); Monocytes % 12.9 % (1.7-12.7); Neutrophils % 67.4 % (38.7-73.9); Platelet Count 166 T/CUMM (130-400); Red Blood Count 2.88 MC/CUMM (3.8-5.5); Red Cell Distribution Width 12.8 % (9.3-17.3)
[2020-04-11 07:04] LABS: Alanine Aminotransferase 28 U/L (13-56); Albumin 2.6 G/DL (3.4-5.0); Alkaline Phosphatase 89 U/L (45-117); Aspartate Amino Transferase 21 U/L (0-37); Bilirubin,Indirect 0.6 MG/DL (0.0-1.0); Blood Urea Nitrogen 29 MG/DL (7-18); Calcium 8.7 MG/DL (8.5-10.1); Estimated Glom Filtration Rate 74 ML/MIN; Glucose 120 MG/DL (74-106); Osmolality,Calculated 276.1 MOS/KG (273-304); Total Protein 5.9 G/DL (6.4-8.3)
[2020-04-11 07:10] LABS: Troponin I 0.258 NG/ML (0.00-0.045)
[2020-04-11] MEDS: ALBUTEROL 2.5 MG/3 ML NEB RESP TX SCH ×2 (07:35→19:25)
[2020-04-11] MEDS: MAGNESIUM HYDROXIDE SUSP 30 ML UDCUP PO PRN (09:12)
[2020-04-11] MEDS: COENZYME Q10 100 MG CAPSULE PO SCH (09:13)
[2020-04-11] MEDS: LIDOCAINE 5% PATCH TRANSDERM SCH (09:13)
[2020-04-11] MEDS: FEXOFENADINE 180 MG TABLET PO SCH (09:13)
[2020-04-11] MEDS: PANTOPRAZOLE 40 MG TABLET PO SCH (09:14)
[2020-04-11] MEDS: DOCUSATE SODIUM 100 MG CAPSULE PO SCH (09:14)
[2020-04-11] MEDS: POTASSIUM CHLORIDE 20 MEQ TABLET PO PRN ×2 (09:14→10:33)
[2020-04-11] MEDS: OMEGA 3 ACID ETHYL ESTERS 1 GM CAPSULE PO SCH (09:14)
[2020-04-11] MEDS: EZETIMIBE 10 MG TABLET PO SCH (09:14)
[2020-04-11] MEDS: ATORVASTATIN 40 MG TABLET PO SCH (09:14)
[2020-04-11] MEDS: AMPICILLIN 500 MG CAPSULE PO SCH ×4 (09:14→20:50)
[2020-04-11] MEDS: FERROUS SULFATE 325 MG TABLET PO SCH (09:15)
[2020-04-11] MEDS: MONTELUKAST 10 MG TABLET PO SCH (09:15)
[2020-04-11] MEDS: AMIODARONE 200 MG TABLET PO SCH ×2 (09:15→20:50)
[2020-04-11] MEDS: ASPIRIN EC 81 MG TABLET PO SCH (09:15)
[2020-04-11] MEDS: METHENAMINE HIPPURATE 1 GM TABLET PO SCH ×2 (09:16→20:48)
[2020-04-11] MEDS: atenoloL 25 MG TABLET PO SCH (09:16)
[2020-04-11] MEDS: CHLORHEXIDINE 0.12% ORAL RINSE 60 ML BOTTLE SWISH/SPIT SCH ×2 (09:17→20:58)
[2020-04-11] MEDS: KETOROLAC 30 MG/1 ML VIAL IV PRN ×2 (09:18→20:50)
[2020-04-11] MEDS: lisinopriL 20 MG TABLET PO SCH (12:22)
[2020-04-11] MEDS: AMIODARONE INJ 450 MG in DEXTROSE 5% 241 ML IV SCH (12:22)
[2020-04-11] MEDS: dilTIAZem Drip 125 MG/125 ML PREMIX IV SCH (12:23)
[2020-04-11] MEDS ORDERED: SODIUM CHLORIDE 0.9% 250 ML IV ONE (12:29)
[2020-04-11] MEDS: NORTRIPTYLINE 25 MG CAPSULE PO SCH (20:50)
[2020-04-11] MEDS: VENLAFAXINE 75 MG TABLET PO SCH (20:50)
[2020-04-11] MEDS: MAGNESIUM GLUCONATE 500 MG TABLET PO SCH (20:50)
[2020-04-11] MEDS ORDERED: ESTRADIOL 0.01% VAG CREAM 42.5 GM TUBE VAG SCH (21:00)
[2020-04-12] MEDS: AMIODARONE INJ 450 MG in DEXTROSE 5% 241 ML IV SCH (02:11)
[2020-04-12 05:42] LABS: Basophils % 0.3 % (0.0-0.8); Eosinophils # 0.4 10*3/uL (0.0-0.87); Eosinophils % 5.1 % (0.00-10.9); Hematocrit 32.3 VOL% (35.7-47.0); Hemoglobin 10.1 GM/DL (12.0-16.0); Immature Granulocytes % 0.7 %; Immature Granulocytes Absolute 0.06 #; Lymphocytes # 1.8 10*3/uL (1.4-4.0); Lymphocytes % 21.1 % (21.3-54.2); Mean Corpuscular HGB Conc 31.3 GM/DL (32-36); Mean Corpuscular Volume 102.9 FL (87-102); Mean Platelet Volume 10.5 FL (9.6-12.0); Monocytes % 10.5 % (1.7-12.7); Neutrophils % 62.3 % (38.7-73.9); Platelet Count 204 T/CUMM (130-400); Red Blood Count 3.14 MC/CUMM (3.8-5.5); Red Cell Distribution Width 12.5 % (9.3-17.3); White Blood Count 8.7 T/CUMM (4-12)
[2020-04-12 06:20] LABS: Calcium 8.9 MG/DL (8.5-10.1); Osmolality,Calculated 280.7 MOS/KG (273-304)
[2020-04-12] MEDS: ALBUTEROL 2.5 MG/3 ML NEB RESP TX SCH ×2 (07:03→21:00)
[2020-04-12] MEDS: LIDOCAINE 5% PATCH TRANSDERM SCH (09:49)
[2020-04-12] MEDS: METHOCARBAMOL 500 MG TABLET PO PRN (09:50)
[2020-04-12] MEDS: METHENAMINE HIPPURATE 1 GM TABLET PO SCH ×2 (09:50→21:25)
[2020-04-12] MEDS: MONTELUKAST 10 MG TABLET PO SCH (09:51)
[2020-04-12] MEDS: atenoloL 25 MG TABLET PO SCH (09:51)
[2020-04-12] MEDS: EZETIMIBE 10 MG TABLET PO SCH (09:51)
[2020-04-12] MEDS: FERROUS SULFATE 325 MG TABLET PO SCH (09:51)
[2020-04-12] MEDS: COENZYME Q10 100 MG CAPSULE PO SCH (09:51)
[2020-04-12] MEDS: FEXOFENADINE 180 MG TABLET PO SCH (09:51)
[2020-04-12] MEDS: OMEGA 3 ACID ETHYL ESTERS 1 GM CAPSULE PO SCH (09:51)
[2020-04-12] MEDS: DOCUSATE SODIUM 100 MG CAPSULE PO SCH (09:51)
[2020-04-12] MEDS: AMIODARONE 200 MG TABLET PO SCH ×2 (09:52→21:25)
[2020-04-12] MEDS: PANTOPRAZOLE 40 MG TABLET PO SCH (09:52)
[2020-04-12] MEDS: ATORVASTATIN 40 MG TABLET PO SCH (09:52)
[2020-04-12] MEDS: AMPICILLIN 500 MG CAPSULE PO SCH ×4 (09:52→21:25)
[2020-04-12] MEDS: CHLORHEXIDINE 0.12% ORAL RINSE 60 ML BOTTLE SWISH/SPIT SCH ×2 (09:52→21:25)
[2020-04-12] MEDS: ASPIRIN EC 81 MG TABLET PO SCH (09:52)
[2020-04-12] MEDS: NORTRIPTYLINE 25 MG CAPSULE PO SCH (21:24)
[2020-04-12] MEDS: VENLAFAXINE 75 MG TABLET PO SCH (21:25)
[2020-04-12] MEDS: MAGNESIUM GLUCONATE 500 MG TABLET PO SCH (21:25)
[2020-04-12] MEDS: KETOROLAC 30 MG/1 ML VIAL IV PRN (21:26)
[2020-04-13 04:13] LABS: Basophils % 0.4 % (0.0-0.8); Eosinophils # 0.6 10*3/uL (0.0-0.87); Hematocrit 27.6 VOL% (35.7-47.0); Immature Granulocytes % 0.8 %; Immature Granulocytes Absolute 0.07 #; Lymphocytes # 2.2 10*3/uL (1.4-4.0); Lymphocytes % 26.6 % (21.3-54.2); Mean Corpuscular HGB Conc 32.6 GM/DL (32-36); Mean Corpuscular Volume 99.3 FL (87-102); Monocytes % 11.5 % (1.7-12.7); Neutrophils % 53.7 % (38.7-73.9); Platelet Count 195 T/CUMM (130-400); Red Blood Count 2.78 MC/CUMM (3.8-5.5); Red Cell Distribution Width 12.1 % (9.3-17.3); White Blood Count 8.3 T/CUMM (4-12)
[2020-04-13 04:33] LABS: Hypochromasia 1+; Platelet Estimate Adequate
[2020-04-13 04:34] LABS: Microcytosis Slight
[2020-04-13 04:44] LABS: Alanine Aminotransferase 32 U/L (13-56); Albumin 2.4 G/DL (3.4-5.0); Alkaline Phosphatase 94 U/L (45-117); Aspartate Amino Transferase 29 U/L (0-37); Bilirubin,Indirect 0.4 MG/DL (0.0-1.0); Blood Urea Nitrogen 25 MG/DL (7-18); Calcium 8.6 MG/DL (8.5-10.1); Estimated Glom Filtration Rate 100 ML/MIN; Glucose 94 MG/DL (74-106); Osmolality,Calculated 278.7 MOS/KG (273-304); Total Protein 5.6 G/DL (6.4-8.3); Troponin I 0.072 NG/ML (0.00-0.045)
[2020-04-13] MEDS: ALBUTEROL 2.5 MG/3 ML NEB RESP TX SCH (08:00)
[2020-04-13] MEDS ORDERED: POTASSIUM CHLORIDE 20 MEQ TABLET PO SCH (09:00)
[2020-04-13] MEDS ORDERED: ERGOCALCIFEROL 50,000 UNIT CAPSULE PO SCH (09:00)
[2020-04-13] MEDS ORDERED: FUROSEMIDE 40 MG TABLET PO SCH (09:00)
[2020-04-13] MEDS ORDERED: lisinopriL 5 MG TABLET PO SCH (09:00)
[2020-04-13] MEDS: FERROUS SULFATE 325 MG TABLET PO SCH (09:10)
[2020-04-13] MEDS: DOCUSATE SODIUM 100 MG CAPSULE PO SCH (09:10)
[2020-04-13] MEDS: AMPICILLIN 500 MG CAPSULE PO SCH (09:10)
[2020-04-13] MEDS: METHENAMINE HIPPURATE 1 GM TABLET PO SCH (09:10)
[2020-04-13] MEDS: ATORVASTATIN 40 MG TABLET PO SCH (09:10)
[2020-04-13] MEDS: MONTELUKAST 10 MG TABLET PO SCH (09:10)
[2020-04-13] MEDS: COENZYME Q10 100 MG CAPSULE PO SCH (09:11)
[2020-04-13] MEDS: ASPIRIN EC 81 MG TABLET PO SCH (09:11)
[2020-04-13] MEDS: atenoloL 25 MG TABLET PO SCH (09:11)
[2020-04-13] MEDS: FEXOFENADINE 180 MG TABLET PO SCH (09:12)
[2020-04-13] MEDS: PANTOPRAZOLE 40 MG TABLET PO SCH (09:12)
[2020-04-13] MEDS: OMEGA 3 ACID ETHYL ESTERS 1 GM CAPSULE PO SCH (09:12)
[2020-04-13] MEDS: AMIODARONE 200 MG TABLET PO SCH (09:12)
[2020-04-13] MEDS: EZETIMIBE 10 MG TABLET PO SCH (09:13)
[2020-04-13] MEDS: LIDOCAINE 5% PATCH TRANSDERM SCH (09:13)
[2020-04-13] MEDS: CHLORHEXIDINE 0.12% ORAL RINSE 60 ML BOTTLE SWISH/SPIT SCH (09:14)
[2020-04-13 12:09] VITALS: BP 135/77
[2020-05-06] MEDS ORDERED: CYANOCOBALAMIN 1000 MCG/1 ML VIAL IM SCH ×2 (09:00)
== END 2020-04-13 15:05 | disposition home health service (06) | DRG 234 ==
LOC: N.CL 10:48 → N.TELES 14:30 → N.CVR 04-08 11:09 → N.TELES 04-09 11:35
PROVIDERS: ADMIT Internal Medicine Interventional Cardiology; ATTEND Internal Medicine Interventional Cardiology